=== PATIENT | male | born 2000 | race Caucasian/White ===

== ENCOUNTER 2020-08-25 19:44 | Emergency (ER) | payer OTHER ==
[~2020-08-25] VITALS: Ht 177.8 cm; Wt 66.4 kg
[2020-08-26 01:45] VITALS: BP 135/84
== END 2020-08-26 01:45 | disposition home or self-care (01) ==
LOC: EMS 19:47
DX: M25.512 Pain in left shoulder (principal)
CPT/HCPCS: 99283; 99285